=== PATIENT | male | born 2000 | race Hispanic/Latino ===

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

== ENCOUNTER 2022-02-12 11:09 | Emergency (ER) | payer OTHER ==
--- OUTSIDE RECORDS SUMMARY | 2022-02-12 11:12 | XMS REPORT | Continuity of Care Document ---
:2000 Author Organization [facility] t Address [address] [place] [address] Care Team Providers Name Role Phone PCP, PATIENT DOES NOT HAVE A Primary Care Physician Unavaila ble Doctor Unassigned, [place] Attending Clinician Unavailable TIM GRANDE Attending Clinician Unavailable Tim Grande MD Attending Clinician Srinath Talley Attending Clinician Yassine Hyman DO Attending Clinician Geneva Espino Attending Clinician Herminia Xavier Attending Clinician Raju_P Attending Clinician Unavailable Raju_P Admitting Clinician Unavailable Payers Payer Name Policy Type Policy Number Effective Date Expiration Date [facility] [id number] 2017 CHOICE MEDICAID 00:00:00 Problems Condition Condition Condition Status Onset Resolution Last Treating Co mments Source Name Details Category Date Date Treatment Clinician Date Otitis Otitis Disease Active Overview: Univer s media media 11-28 Formattin ity of 00:00: g of this [place] 00 note Medical might be Branch different from the original. BOME 06/01/06, LOM 06/15/06, DESTINI 06/15/06IC D10 Diagnosis Term Radio News An[employer] Utility Other and Other and Disease Active Overview: Univers unspecifie unspecifie 11-28 Formattin ity of d diseases d diseases [...] closed 0-25 ity of fracture fracture 00:00: [place] 00 Medical Branch Allergies, Adverse Reactions, Alerts [...] Quantity Comments Source Exposure to Not sure [facility] SARS-CoV-2 (event) Medica l Branch Tobacco use and 2017-07-30 2017-07-30 Never used [facility] exposure 00:00:00 00:00:00 Medical Branch Sex Assigned At [birth year] [facility] 00:00:00 00:00:00 Medical Branch Smoking Status Start Date Stop Date Source Never smoker [facility] Branch Medications Ordered Filled Start Stop Current Ordering Indication Dosage Frequency Signature Comments Components Source Medication Medication Date Date Medication? Clinician (SIG) Name Name naproxen Yes [id number] 550mg Take 1 U nivers sodium 9-16 tablet by ity of (ANAPROX 00:00: mouth 2 [place] DS) 550 mg 00 (two) Medical tablet times Branch daily with meals. naproxen Yes [id number] 550mg Take 1 U nivers sodium 9-16 tablet by ity of (ANAPROX 00:00: mouth 2 [place] DS) 550 mg 00 (two) Medical tablet times Branch daily with meals. Immunizations Ordered Filled Immunization Date Status Comments [facility] e Immunization Name Name DTAP 2006-06-01 Completed [facility] 00:00:00 [facility] MMR 2006-06-01 Completed University of 00:00:00 [facility] Polio (IPV/OPV) 2006-06-01 Completed Universit y of 00:00:00 [facility] Varicella 2006-06-01 Completed University of (varivax)(chicken 00:00:00 [place] M edical pox) Branch Proquad 2006-06-01 Completed University of (MMR/VARICELLA) 00:00:00 [facility] Branch DTAP 2006-06-01 Completed University of 00:00:00 [facility] MMR 2006-06-01 Completed University of 00:00:00 [facility] Polio (IPV/OPV) 2006-06-01 Completed Universit y of 00:00:00 [facility] Varicella 2006-06-01 Completed University of (varivax)(chicken 00:00:00 [place] M edical pox) Branch Proquad 2006-06-01 Completed University of (MMR/VARICELLA) 00:00:00 [facility] HEPATITIS A 2005-10-25 Completed University of 00:00:00 [facility] HEPATITIS A 2005-10-25 Completed University of 00:00:00 [facility] Pneumococcal 7 2005-01-21 Completed University of Conjugate, PCV7 00:00:00 [facility] (Prevnar7) [place] HEPATITIS A 2005-01-21 Completed University of 00:00:00 [facility] Pneumococcal 7 2005-01-21 Completed University of Conjugate, PCV7 00:00:00 [facility] (Prevnar7) [place] HEPATITIS A 2005-01-21 Completed University of 00:00:00 [facility] DTAP 2003-12-11 Completed University of 00:00:00 [facility] HIB 4 Dose Schedule 2003-12-11 Completed Unive rsity of 00:00:00 [facility] DTAP 2003-12-11 Completed University of 00:00:00 [facility] HIB 4 Dose Schedule 2003-12-11 Completed Unive rsity of 00:00:00 [facility] HIB 4 Dose Schedule 2003-03-28 Completed Unive rsity of 00:00:00 [facility] HIB 4 Dose Schedule 2003-03-28 Completed Unive rsity of 00:00:00 [facility] DTAP 2003-03-26 Completed University of 00:00:00 [facility] Pneumococcal 7 2003-03-26 Completed University of Conjugate, PCV7 00:00:00 [place] Med ical (Prevnar7) Branch Polio (IPV/OPV) 2003-03-26 Completed Universit y of 00:00:00 [facility] MMR 2003-03-26 Completed University of 00:00:00 [facility] Varicella 2003-03-26 Completed University of (varivax)(chicken 00:00:00 [facility] edical pox) Branch DTAP 2003-03-26 Completed University of 00:00:00 [facility] Pneumococcal 7 2003-03-26 Completed University of Conjugate, PCV7 00:00:00 [place] Med ical (Prevnar7) Branch Polio (IPV/OPV) 2003-03-26 Completed Universit y of 00:00:00 [facility] MMR 2003-03-26 Completed University of 00:00:00 [facility] Varicella 2003-03-26 Completed University of (varivax)(chicken 00:00:00 [facility] edical pox) Branch Hep B, Adol or Pedi 2003-01-17 Completed Unive rsity of Dosage 00:00:00 [facility] DTAP 2003-01-17 Completed University of 00:00:00 [facility] HIB 4 Dose Schedule 2003-01-17 Completed Unive rsity of 00:00:00 [facility] Pneumococcal 7 2003-01-17 Completed University of Conjugate, PCV7 00:00:00 [place] Med ical (Prevnar7) Branch Polio (IPV/OPV) 2003-01-17 Completed Universit y of 00:00:00 [facility] Hep B, Adol or Pedi 2003-01-17 Completed Unive rsity of Dosage 00:00:00 [facility] DTAP 2003-01-17 Completed University of 00:00:00 [facility] HIB 4 Dose Schedule 2003-01-17 Completed Unive rsity of 00:00:00 [facility] Pneumococcal 7 2003-01-17 Completed University of Conjugate, PCV7 00:00:00 [place] Med ical (Prevnar7) Branch Polio (IPV/OPV) 2003-01-17 Completed Universit y of 00:00:00 [facility] Hep B, Adol or Pedi 2002 Completed Unive rsity of Dosage 00:00:00 [facility] DTAP 2002 Completed University of 00:00:00 [facility] HIB 4 Dose Schedule 2002 Completed Unive rsity of 00:00:00 [facility] Polio (IPV/OPV) 2002 Completed Universit y of 00:00:00 [facility] Hep B, Adol or Pedi 2002 Completed Unive rsity of Dosage 00:00:00 [facility] DTAP 2002 Completed University of 00:00:00 [facility] HIB 4 Dose Schedule 2002 Completed Unive rsity of 00:00:00 [facility] Polio (IPV/OPV) 2002 Completed Universit y of 00:00:00 [facility] Hep B, Adol or Pedi 2002 Completed Unive rsity of Dosage 00:00:00 [facility] Hep B, Adol or Pedi 2002 Completed Unive rsity of Dosage 00:00:00 [facility] Vital Signs Vital Name Observation Time Observation Value Comments Source Body height 2021-01-20 19:29:00 167.6 cm [facility] Body weight 2021-01-20 19:29:00 68.04 kg [facility] BMI 2021-01-20 19:29:00 24.21 kg/m2 [facility] Body mass index 2021-01-20 19:29:00 70.72 % Unive rsity [facility] (BMI) [facility] [Percentile] Per age and sex Procedures Procedure Date / Time Performing Clinician Source Performed INSURANCE CORRESPONDENCE 2021-01-12 05:01:00 Doctor Dipti, [facility] [place] [facility] Encounters Start End Encounter Admission Attending Care Care Encounter Source Date/Time Date/Time Type Type Clinicians Facility Department ID 2021-02-01 Emergency [facility] [id number] Univers 23:11:10 ity of [facility] 2021-01-29 Emergency [facility] [id number] Univers 19:34:12 ity of [facility] 2021-01-29 Emergency [facility] [id number] Univers 00:55:57 ity of [facility] 2021-02-02 2021-02-02 Orders Doctor RIBEIRO [id number] Univers 00:00:00 00:00:00 Only UnassSHANE pyle [id number] ity of [place] [facility] [id number] Maksim as [id number] [facility] 009 [place] 2021-01-20 2021-01-20 [facility] [id number] Univers 14:30:00 14:49:25 TIM mueller [facility] 2021-01-20 2021-01-20 [facility] [id number] Univers 14:22:11 14:49:25 Visit Tim Bower [employer] [id number] [facility] [id number] Maksim as KEVIN?BLEA [phone] [address] MEDICAL OFFICE BUILDING 2021-01-13 2021-01-13 Hospital [facility] [id number] Univers 11:30:00 23:59:00 Encounter [place] [id number] ity of [place] [id number] [phone] [facility] 804 [place] 2021-01-13 2021-01-13 [facility] [id number] Univers 00:00:00 00:00:00 TIM madhu [facility] 2021-01-13 2021-01-13 Orders Doctor QUINTIN 1.2.840.114 [id number] Univers 00:00:00 00:00:00 Only Unassigned, SHANE [id number] ity of [place] [facility] [id number] Maksim as [id number] [address] 2021-01-12 2021-01-12 Orders Doctor QUINTIN 1.2.840.114 [id number] Univers 00:00:00 00:00:00 Only Unassigned, SHANE [id number] ity of [place] [facility] [id number] Maksim as [id number] [address] 2021-01-04 2021-01-04 [facility] [id number] Univers 00:00:00 00:00:00 Srinath S [facility] [id number] it y of [place] [id number] Maksim as Kevin?Blea [phone] Ny ria ferreira 198 [facility] Office [facility] 2020-12-30 2020-12-30 [facility] [id number] Univers 13:48:33 14:31:31 Visit Tim Bower [facility] [id number] it y of [place] [id number] Maksim as Kevin?Blea [phone] Ny ria [facility] 198 [facility] Office [facility] 2020-12-30 2020-12-30 Outpatient [facility] [id number] Univers 13:45:00 13:45:00 TIM mueller [facility] 2020-12-30 2020-12-30 Orders Doctor QUINTIN [id number] Univers 00:00:00 00:00:00 Only Unassigned, SHANE [id number] ity of [place] [facility] [id number] Maksim as [phone] [address] 2020-12-25 2020-12-25 Outpatient [facility] [id number] Univers 08:30:00 08:30:00 TIM mueller [facility] 2020-12-17 2020-12-17 Emergency [facility] [id number] Univers 14:55:00 16:09:00 Yassine Quintanilla [id number] i ty of [place] [id number] [place] [facility] [id number] [address] 2020-12-17 2020-12-17 Orders Doctor QUINTIN 1.2.840.114 [id number] Univers 00:00:00 00:00:00 Only UnassignedSHANE [id number] ity of [place] [facility] [id number] Maksim as [id number] [address] 2019-12-27 2019-12-28 Emergency [facility] [id number] Univers 22:51:00 00:12:00 Geneva Quintanilla [id number] i ty [place] [id number] [place] [id number] [address] 2019-12-27 2019-12-27 Orders Doctor RIBEIRO 1.2.840.114 [id number] Univers 00:00:00 00:00:00 Only Unassigned, SHANE [id number] ity of [place] [facility] [id number] Maksim as [id number] [address] 2019-09-15 2019-09-16 Emergency [facility] 1.2.840.114 [id number] Univers 22:22:08 00:40:00 Herminia Quiroz [place] [id number] ity of [place] [id number] [facility] [phone] [address] 2019-07-15 2019-07-15 Outpatient Raju_P [facility] [id number] [place] 04:40:00 04:40:00 0413 [facility] 2019-05-27 2019-05-27 Outpatient O [facility] [id number] Univers 16:00:16 23:59:00 [facility]-05-27 2019-05-27 Hospital [facility] [id number] Univers 16:00:00 23:59:00 Encounter Tim Bower [facility] [id number] ity of Surgical [id number] Maksim as Specialti [phone] Ny dical es 809 [facility] 2019-05-27 2019-05-27 Office [facility] [id number] Univers 15:32:16 16:09:16 Visit Tim L Health [id number] it y of Surgical [id number] Maksim as Specialti [phone] Ny dical es 198 [facility] 2019-05-27 2019-05-27 Outpatient R [facility] [id number] Univers 15:15:00 15:15:00 TIM mueller [facility] 2019-05-27 2019-05-27 Orders Doctor RIBEIRO 1.2.840.114 [id number] Univers 00:00:00 00:00:00 Only Unassigned, SHANE [id number] ity of [place] [facility] [id number] Maksim as [phone] [place] [address] Branch 2019-05-27 2019-05-27 Letter Harjinder, [facility] [id number] Univers 00:00:00 00:00:00 (Out) [facility] [id number] it y of Surgical [id number] Maksim as Specialti [phone] [place] dical es 198 Branch [place] Results This patient has no known results.
--- NOTE | 2022-02-12 12:39 | RAD REPORT ---
EXAM DESCRIPTION: RAD - Wrist Right 2 View - 02/12/2022 12:21 pm CLINICAL HISTORY: PAIN COMPARISON: No comparisons FINDINGS/IMPRESSION: No acute fracture. No malalignment. No significant focal degenerative changes.
--- NOTE | 2022-02-12 12:47 | ER ---
Nurse's Notes [facility] Name: Otf Rocha III Age: 21 yrs Sex: Male : 2000 Arrival Date: 02/12/2022 Time: 11:11 Bed 12 Private MD: Diagnosis: Pain in right wrist Presentation: 02/12 11:25 Chief complaint: Patient states: Working out doing biceps curls, reports right wrist jl7 pain since 1000 this morning. Coronavirus screen: At this time, the client does not indicate any symptoms associated with coronavirus-19. Ebola Screen: No symptoms or risks identified at this time. Initial Sepsis Screen: Does the patient meet any 2 criteria? No. Patient's initial sepsis screen is negative. Does the patient have a suspected source of infection? No. Patient's initial sepsis screen is negative. Risk Assessment: Do you want to hurt yourself or someone else? Patient reports no desire to harm self or others. Onset of symptoms was February 12, 2022 at 10:00. 11:25 Method Of Arrival: Ambulatory [facility] 11:25 Acuity: NYASIA 4 jl7 Triage Assessment: 11:26 General: Appears in no apparent distress. uncomfortable, Behavior is calm, cooperative, jl7 appropriate for age. Pain: Complains of pain in right wrist Pain radiates to dorsal aspect of right forearm Pain currently is 7 out of 10 on a pain scale. Musculoskeletal: Swelling absent. Injury Description: pain. Historical: - Allergies: 11:26 Amoxicillin; jl7 - Home Meds: 11:26 None [Active]; jl7 - PMHx: 11:26 None; jl7 - PSHx: 11:26 jaw repair- 6 years old; jl7 - Immunization history:: Client reports having NOT received the Covid vaccine. - Social history:: Smoking status: Patient denies any tobacco usage or history of. Screenin:39 Abuse screen: Denies threats or abuse. Nutritional screening: No deficits noted. mb9 Tuberculosis screening: No symptoms or risk factors identified. Fall Risk None identified. Assessment: 11:37 General: Appears in no apparent distress. comfortable, Behavior is calm, cooperative, mb9 appropriate for age. Pain: Complains of pain in right wrist Pain radiates to dorsal aspect of right forearm and right arm Pain currently is 7 out of 10 on a pain scale. Quality of pain is described as sharp, shooting, Pain began suddenly. Neuro: Level of Consciousness is awake, alert, obeys commands, Oriented to person, place, time, situation, Appropriate for age. Cardiovascular: Heart tones S1 S2 present Capillary refill < 3 seconds Rhythm is regular. Respiratory: Airway is patent Respiratory effort is even, unlabored, Respiratory pattern is regular, symmetrical. GI: Abdomen is flat. : No signs and/or symptoms were reported regarding the genitourinary system. EENT: No signs and/or symptoms were reported regarding the EENT system. Derm: Skin is pink, warm \T\ dry. Musculoskeletal: Capillary refill < 3 seconds, Range of motion: limited in right wrist no swelling noted to right wrist Tenderness present in right wrist. 12:49 Reassessment: No changes from previously documented assessment. mb9 Vital Signs: 11:25 BP 113 / 63; Pulse 80; Resp 17; Temp 97.7; Pulse Ox 99% ; Weight 72.57 kg; Height 5 ft. jl7 7 in. (170.18 cm); Pain 7/10; 12:49 BP 115 / 64; Pulse 74; Resp 16; Pulse Ox 100% on R/A; mb9 11:25 Body Mass Index 25.06 (72.57 kg, 170.18 cm) jl7 ED Course: 11:11 Patient arrived in ED. as 11:13 [place] Wong is PHCP. jl9 11:13 Kayce Jolley MD is Attending Physician. jl9 11:26 Triage completed. jl7 11:26 Arm band placed on right wrist. jl7 11:26 Bed in low position. Call light in reach. Side rails up X 1. mb9 11:30 Norma Su, BRITANY is Primary Nurse. mb9 11:39 No provider procedures requiring assistance completed. mb9 12:23 XRAY Wrist RIGHT 2 view In Process Unspecified. EDMS 12:50 Patient did not have IV access during this emergency room visit. mb9 Administered Medications: No medications were administered Medication: 11:39 VIS not applicable for this client. mb9 Outcome: 12:46 Discharge ordered by . jl9 12:54 Discharged to home ambulatory. mb9 12:54 Condition: stable 12:54 Discharge instructions given to patient, Instructed on discharge instructions, follow up and referral plans. Demonstrated understanding of instructions, follow-up care, medications, Prescriptions given X 1. 12:54 Patient left the ED. [email or web address] Signatures: Dispatcher [employer] Elenita Mclaughlin Jahala, RN RN jl7 Berlin Wong9 Norma Su RN RN mb9
--- NOTE | 2022-02-12 12:47 | EDPHYS ---
Physician Documentation [facility] Name: Otf Rocha III Age: 21 yrs Sex: Male : 2000 Arrival Date: 02/12/2022 Time: 11:11 Bed 12 Private MD: BEN Physician Kayce Jolley HPI: 02/12 12:42 This 21 yrs old Male presents to ER via Ambulatory with complaints of wrist jl9 pain s/p lifting weight. Denies any trauma. . 12:42 The patient or guardian reports pain. The complaints affect the left wrist diffusely. jl9 Context: The problem was sustained at home. Onset: The symptoms/episode began/occurred today. Modifying factors: The symptoms are alleviated by holding still, the symptoms are aggravated by movement. Historical: - Allergies: 11:26 Amoxicillin; jl7 - Home Meds: 11:26 None [Active]; jl7 - PMHx: 11:26 None; jl7 - PSHx: 11:26 jaw repair- 6 years old; jl7 - Immunization history:: Client reports having NOT received the Covid vaccine. - Social history:: Smoking status: Patient denies any tobacco usage or history of. ROS: 12:43 Constitutional: Negative for fever, chills, and weight loss, Eyes: Negative for injury, jl9 pain, redness, and discharge, ENT: Negative for injury, pain, and discharge, Neck: Negative for injury, pain, and swelling, Cardiovascular: Negative for chest pain, palpitations, and edema, Respiratory: Negative for shortness of breath, cough, wheezing, and pleuritic chest pain, Abdomen/GI: Negative for abdominal pain, nausea, vomiting, diarrhea, and constipation, Back: Negative for injury and pain, : Negative for injury, bleeding, discharge, and swelling. 12:44 Skin: Negative for injury, rash, and discoloration, Neuro: Negative for headache, jl9 weakness, numbness, tingling, and seizure, Psych: Negative for depression, anxiety, suicide ideation, homicidal ideation, and hallucinations, Allergy/Immunology: Negative for hives, rash, and allergies, Endocrine: Negative for neck swelling, polydipsia, polyuria, polyphagia, and marked weight changes, Hematologic/Lymphatic: Negative for swollen nodes, abnormal bleeding, and unusual bruising. 12:44 MS/extremity: Positive for pain, R wrist pain. Exam: 12:44 Hand exam: Exam is positive for pain, ROM: limited active range of motion due to pain, jl9 Circulation is intact in all extremities. sensation intact. 12:44 Constitutional: This is a well developed, well nourished patient who is awake, alert, and in no acute distress. Head/Face: Normocephalic, atraumatic. Eyes: Pupils equal round and reactive to light, extra-ocular motions intact. Lids and lashes normal. Conjunctiva and sclera are non-icteric and not injected. Cornea within normal limits. Periorbital areas with no swelling, redness, or edema. ENT: Mucous membranes moist. Neck: Trachea midline, no thyromegaly or masses palpated, and no cervical lymphadenopathy. Supple, full range of motion without nuchal rigidity, or vertebral point tenderness. No Meningismus. Chest/axilla: Normal chest wall appearance and motion. Nontender with no deformity. No lesions are appreciated. Cardiovascular: Regular rate and rhythm with a normal S1 and S2. No gallops, murmurs, or rubs. Normal PMI, no JVD. No pulse deficits. Respiratory: Lungs have equal breath sounds bilaterally, clear to auscultation and percussion. No rales, rhonchi or wheezes noted. No increased work of breathing, no retractions or nasal flaring. Abdomen/GI: Soft, non-tender, with normal bowel sounds. No distension or tympany. No guarding or rebound. No evidence of tenderness throughout. Back: No spinal tenderness. No costovertebral tenderness. Full range of motion. Skin: Warm, dry with normal turgor. Normal color with no rashes, no lesions, and no evidence of cellulitis. Neuro: Awake and alert, GCS 15, oriented to person, place, time, and situation. Cranial nerves II-XII grossly intact. Motor strength 5/5 in all extremities. Sensory grossly intact. Cerebellar exam normal. Normal gait. Psych: Awake, alert, with orientation to person, place and time. Behavior, mood, and affect are within normal limits. Vital Signs: 11:25 BP 113 / 63; Pulse 80; Resp 17; Temp 97.7; Pulse Ox 99% ; Weight 72.57 kg; Height 5 ft. jl7 7 in. (170.18 cm); Pain 7/10; 12:49 BP 115 / 64; Pulse 74; Resp 16; Pulse Ox 100% on R/A; mb9 11:25 Body Mass Index 25.06 (72.57 kg, 170.18 cm) jl7 MDM: 11:30 Patient medically screened. jl9 12:45 Differential diagnosis: closed fracture, contusion, abrasion. Data reviewed: vital jl9 signs, nurses notes. Counseling: I had a detailed discussion with the patient and/or guardian regarding: the historical points, exam findings, and any diagnostic results supporting the discharge/admit diagnosis, radiology results, the need for outpatient follow up. 02/12 11:26 Order name: XRAY Wrist RIGHT 2 view; Complete Time: 12:42 jl9 Administered Medications: No medications were administered Disposition: 12:45 Chart complete. jl9 15:34 STAFF ATTESTATION STATEMENT: I was immediately available onsite in the emergency sd2 department for consultation in the care of this patient. I did not see or examine this patient. Kayce Jolley MD. Disposition Summary: 02/12/22 12:46 Discharge Ordered Location: Home jl9 Condition: Stable jl9 Diagnosis - Pain in right wrist jl9 Followup: jl9 - With: Private Physician - When: 1 - 2 days - Reason: Recheck today's complaints, Continuance of care, Re-evaluation by your physician Discharge Instructions: - Discharge Summary Sheet jl9 - Wrist Pain, Adult, [id number] jl9 Forms: - Medication Reconciliation Form jl9 - Thank You Letter jl9 - Antibiotic Education jl9 - Prescription Opioid Use jl9 Prescriptions: - Ibuprofen 600 mg Oral Tablet - take 1 tablet by ORAL route every 6 hours As needed take with food; 30 tablet; jl9 Refills: 0, Product Selection Permitted Signatures: Dispatcher [employer] Chai Desir RN RN jl7 Linares, John jl9 Dunlop, Stephanie, MD MD sd2
== END 2022-02-12 12:54 | disposition home or self-care (01) ==
LOC: ER 11:09
DX: M25.531 Pain in right wrist (principal); Z88.1 Allergy status to other antibiotic agents
CPT/HCPCS: 99283

== ENCOUNTER 2023-02-17 19:26 | Emergency (ER) | payer OTHER ==
--- OUTSIDE RECORDS SUMMARY | 2023-02-17 19:29 | XMS REPORT | Continuity of Care Document ---
:2000 Author Organization [facility] t Address [address] [place] [address] [place] [id number] Care Team Providers Name Role Phone PCP, PATIENT DOES NOT HAVE A Primary Care Physician Unavaila ble Doctor Unassigned, [place] Attending Clinician Unavailable TIM ZHANG Attending Clinician Unavailable Tim Zhang MD Attending Clinician Srinath Talley Attending Clinician Yassine Hyman DO Attending Clinician Geneva Espino Attending Clinician Herminia Xavier Attending Clinician Raju_P Attending Clinician Unavailable Raju_P Admitting Clinician Unavailable Payers Payer Name Policy Type Policy Number Effective Date Expiration Date [facility] [id number] 2017 CHOICE MEDICAID 00:00:00 Problems Condition Condition Condition Status Onset Resolution Last Treating Co mments Source Name Details Category Date Date Treatment Clinician Date Otitis Otitis Disease Active Overview: Univer s media media 11-28 Formattin ity of 00:00: g of this [place] 00 note Medical might be Branch different from the original. 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 Clinician (SIG) Name Name naproxen Yes [id number] 550mg Take 1 U nivers sodium 9-16 tablet by ity of (ANAPROX 00:00: mouth 2 [place] DS) 550 mg 00 (two) Medical tablet times Branch daily with meals. naproxen Yes [id number] 550mg Take 1 U nivers sodium 9-16 tablet by ity of (ANAPROX 00:00: mouth 2 [place] DS) 550 mg 00 (two) Medical tablet times Branch daily with meals. Vital Signs Vital Name Observation Time Observation Value Comments Source Body height 2021-01-20 19:29:00 167.6 cm [facility] Medical Branch Body weight 2021-01-20 19:29:00 68.04 kg [facility] BMI 2021-01-20 19:29:00 24.21 kg/m2 [facility] Body mass index 2021-01-20 19:29:00 70.72 % [facility] (BMI) [facility] [Percentile] Per age and sex Procedures Procedure Date / Time Performing Clinician Source Performed INSURANCE CORRESPONDENCE 2021-01-12 05:01:00 Doctor Dipti, [facility] [place] [facility] Encounters Start End Encounter Admission Attending Care Care Encounter Source Date/Time Date/Time Type Type Clinicians Facility Department ID 2021-02-01 Emergency [facility] [id number] Univers 23:11:[address] [facility] 2021-01-29 Emergency [facility] [id number] Univers 19:34:[address] [facility] 2021-01-29 Emergency [facility] [id number] Univers 00:55:57 ity [facility] 2021-02-02 2021-02-02 Orders Doctor QUINTIN [id number] Univers 00:00:00 00:00:00 Only Unassigned, SHANE [id number] ity of [place] [facility] [id number] Maksim as [id number] [address] 2021-01-20 2021-01-20 [facility] [id number] Univers 14:30:00 14:49:25 TIM mueller [facility] 2021-01-20 2021-01-20 Office [facility] [id number] Univers 14:22:11 14:49:25 Visit Tim Bower [facility] [id number] it y of [place] [id number] Maksim as KEVIN?BLEA [phone] [address] MEDICAL OFFICE BUILDING 2021-01-13 2021-01-13 Hospital [facility] [id number] Univers 11:30:00 23:59:00 Encounter Tim Quintanilla [id number] ity of [place] [id number] [facility] [phone] [facility] [address] [place] 2021-01-13 2021-01-13 Outpatient [facility] [id number] Univers 00:00:00 00:00:00 TIM mueller [facility] 2021-01-13 2021-01-13 Orders Doctor QUINTIN [id number] [id number] Univers 00:00:00 00:00:00 Only Unassigned, SHANE [id number] ity of [place] [facility] [id number] Maksim as [id number] [address] 2021-01-12 2021-01-12 Orders Doctor QUINTIN 1.2.840.114 [id number] Univers 00:00:00 00:00:00 Only Unassigned, SHANE [id number] ity of [place] [facility] [id number] Maksim as [phone] [address] 2021-01-04 2021-01-04 Telephone [facility] [id number] Univers 00:00:00 00:00:00 [facility] [id number] it y of [place] [id number] Maksim as Kevin?Blea [id number] [address] Medical Office Building 2020-12-30 2020-12-30 Office [facility] [id number] Univers 13:48:33 14:31:31 Visit Tim Health [id number] it y of [place] [id number] Maksim as Kevin?Blea [phone] [address] Medical Office Building 2020-12-30 2020-12-30 Outpatient [facility] [id number] Univers 13:45:00 13:45:00 TIM mueller [facility] 2020-12-30 2020-12-30 Orders Doctor QUINTIN 1.2.840.114 [id number] Univers 00:00:00 00:00:00 Only Unassigned, SHANE [id number] ity of [place] [facility] [id number] Maksim as [phone] [address] 2020-12-25 2020-12-25 Outpatient Belen ZHANG, [facility] [id number] Univers 08:30:00 08:30:[address] [facility] 2020-12-17 2020-12-17 Emergency Hyman, [facility] [id number] Univers 14:55:00 16:09:00 Yassine Quintanilla [id number] i ty of [place] [id number] [facility] [phone] [address] 2020-12-17 2020-12-17 Orders Doctor QUINTIN 1.2.840.114 [id number] Univers 00:00:00 00:00:00 Only Unassigned, SHANE [id number] ity of [place] [facility] [id number] Maksim as [id number] [address] 2019-12-27 2019-12-28 Emergency Gallagher, [facility] [id number] Univers 22:51:00 00:12:00 Geneva Quintanilla [id number] i ty of [place] [id number] [facility] [id number] [address] 2019-12-27 2019-12-27 Orders Doctor QUINTIN 1.2.840.114 [id number] Univers 00:00:00 00:00:00 Only Unassigned, SHANE [id number] ity of [place] [facility] [id number] Maksim as [phone] [address] 2019-09-15 2019-09-16 Emergency Chaoman, [facility] 1.2.840.114 [id number] Univers 22:22:08 00:40:00 Herminia Quintanilla [id number] ity of [place] [id number] [facility] [id number] [address] 2019-07-15 2019-07-15 Outpatient Raju_P [facility] G [id number] [place] 04:40:00 04:40:00 [facility] 2019-05-27 2019-05-27 Outpatient [facility] [id number] Univers 16:00:16 23:59:00 [place] ervin [facility] 2019-05-27 2019-05-27 Hospital [facility] [id number] Univers 16:00:00 23:59:00 Encounter Tim Unger [id number] ity of Surgical [id number] Maksim as Specialti [phone] De dical es 809 [facility] 2019-05-27 2019-05-27 Office [facility] [id number] Univers 15:32:16 16:09:16 Visit Tim Unger [id number] it y of Surgical [id number] Maksim as Specialti [phone] De dical es 198 [facility] 2019-05-27 2019-05-27 Outpatient [facility] [id number] Univers 15:15:00 15:15:00 [facility] 2019-05-27 2019-05-27 Orders Doctor QUINTIN 1.2.840.114 [id number] Univers 00:00:00 00:00:00 Only Unassigned, SHANE [id number] ity of [place] [facility] [id number] Maksim as [id number] [address] 2019-05-27 2019-05-27 Letter [facility] [id number] Univers 00:00:00 00:00:00 (Out) Tim Bower [employer] [id number] it y of Surgical [id number] Maksim as Specialti [phone] De dical es 198 [facility] Results This patient has no known results.
[2023-02-17] MEDS ORDERED: ACETAMINOPHEN 325 MG TABLET ONE ×2 (19:59→20:01)
[2023-02-17] MEDS ORDERED: IBUPROFEN 400 MG TAB ONE (19:59)
--- NOTE | 2023-02-17 20:14 | RAD REPORT ---
EXAM DESCRIPTION: RAD - Knee Right 3 View - 02/17/2023 8:08 pm CLINICAL HISTORY: PAIN COMPARISON: No comparisons FINDINGS: No fracture or dislocation seen. No significant joint effusion evident.
--- NOTE | 2023-02-17 20:58 | EDPHYS ---
Physician Documentation [facility] Name: Otf Rocha III Age: 22 yrs Sex: Male : 2000 Arrival Date: 02/17/2023 Time: 19:26 Bed 11 Private MD: ED Physician Alok Mendosa HPI: 02/17 19:45 This 22 yrs old Male presents to ER via Ambulatory with complaints of Knee cp Injury. 19:45 The patient presents with an injury, pain, that is acute. The complaints affect the cp right knee. Context: resulted from the patient falling, playing sports, basketball, the patient can fully bear weight, the patient is able to ambulate, Problem is a result from a previous injury: No. 19:45 Onset: The symptoms/episode began/occurred 1 week(s) ago. cp Historical: - Allergies: 19:37 Amoxicillin; nj1 - PMHx: 19:37 None; nj1 - PSHx: 19:37 jaw repair- 6 years old; nj1 - Immunization history:: Client reports having NOT received the Covid vaccine. - Social history:: Smoking status: Patient denies any tobacco usage or history of. ROS: 19:50 MS/extremity: Positive for pain, of the right knee, Negative for decreased range of cp motion, deformity, 19:50 Constitutional: Negative for body aches, chills, fever, cp 19:50 Neck: Negative for pain with movement, pain at rest, 19:50 Back: Negative for pain at rest, pain with movement, 19:50 All other systems are negative, Exam: 19:55 Constitutional: The patient appears in no acute distress, alert, awake, non-toxic, well cp developed, well nourished, 19:55 Head/Face: Normocephalic, atraumatic. cp 19:55 Neck: ROM/movement: is normal, is supple, without pain, no range of motions limitations, 19:55 Chest/axilla: Inspection: normal, 19:55 Cardiovascular: Rate: normal, 19:55 Respiratory: the patient does not display signs of respiratory distress, Respirations: normal, no use of accessory muscles, no retractions, labored breathing, is not present, 19:55 Abdomen/GI: Inspection: abdomen appears normal, 19:55 Musculoskeletal/extremity: Extremities: grossly normal except: noted in the right knee: pain, tenderness along medial and lateral joint line, There is no evidence of decreased ROM, deformity, ROM: limited passive range of motion due to pain, in the right knee, Pulses: noted to be 2+ in the right dorsalis pedis artery, the right leg Sensation intact. overlying skin of knee warm, dry and intact. Vital Signs: 19:31 BP 122 / 71; Pulse 58; Resp 16; Temp 98.1(O); Pulse Ox 97% on R/A; Weight 68.04 kg; nj1 Height 5 ft. 7 in. ; Pain 9/10; 20:21 BP 118 / 73; Pulse 71; Resp 17 S; Pulse Ox 98% on R/A; ha1 21:15 BP 121 / 70; Pulse 75; Resp 17 S; Pulse Ox 99% on R/A; ha1 19:31 Body Mass Index 23.49 (68.04 kg, 170.18 cm) [facility] 19:31 Pain Scale: Adult [facility] MDM: 19:31 Patient medically screened. [facility] 19:50 Differential diagnosis: dislocation, closed fracture, contusion, ligament injury, cp meniscus injury. 20:55 Data reviewed: vital signs, nurses notes, radiologic studies, plain films. 20:55 I considered the following discharge prescriptions or medication management in the emergency department Medications were administered in the Emergency Department. See MAR. Counseling: I had a detailed discussion with the patient and/or guardian regarding the historical points, exam findings, and any diagnostic results supporting the discharge/admit diagnosis, radiology results, the need for outpatient follow up, a orthopedic surgeon, to return to the emergency department if symptoms worsen or persist or if there are any questions or concerns that arise at home. Response to treatment: the patient's symptoms have mildly improved after treatment, and as a result, I will discharge patient. 02/17 19:41 Order name: XRAY Knee RIGHT 3 view; Complete Time: 20:37 02/17 20:38 Interpretation: Report reviewed. 02/17 20:55 Order name: Sourav wrap-joint; Complete Time: 21:02 02/17 21:01 Order name: Crutches; Complete Time: 21:13 cp Administered Medications: 19:52 Drug: Ibuprofen PO 800 mg PO once Route: PO; ha1 21:17 Follow up: Response: No adverse reaction; Pain is decreased ha1 19:52 Drug: Acetaminophen PO 650 mg PO once Route: PO; ha1 21:17 Follow up: Response: No adverse reaction; Pain is decreased ha1 Disposition Summary: 02/17/23 20:57 Discharge Ordered Notes: Location: Home cp Problem: new cp Symptoms: have improved cp Condition: Stable cp Diagnosis - Pain in right knee cp Followup: cp - With: Ralph Cheng MD - When: 1 week - Reason: Recheck today's complaints Discharge Instructions: - Discharge Summary Sheet cp - Elastic Bandage and RICE Therapy cp - How to Use a Knee Brace cp - Acute Knee Pain, Adult cp Forms: - Medication Reconciliation Form cp - Thank You Letter cp - Antibiotic Education cp - Prescription Opioid Use cp - Patient Portal Instructions cp - Leadership Thank You Letter cp Prescriptions: - Ibuprofen 800 mg Oral Tablet - take 1 tablet ORAL route every 8 hours As needed take with food; 30 tablet; cp Refills: 0, Product Selection Permitted Signatures: Dispatcher [employer] Alok Dias MD MD cha Page, Corey, PA PA cp Melissa Bronson, RN RN ha1 Arabella Perry RN RN nj1
--- NOTE | 2023-02-17 20:58 | ER ---
Nurse's Notes [facility] Name: Otf Rocha III Age: 22 yrs Sex: Male : 2000 Arrival Date: 02/17/2023 Time: 19:26 Bed 11 Private MD: Diagnosis: Pain in right knee Presentation: 02/17 19:31 Chief complaint: Patient states: Right knee pain, tackled while playing basketball a nj1 week ago. Ibuprofen taken last about 8 hours ago with no significant relief. Able to ambulate with pain. 19:31 Coronavirus screen: Vaccine status: Patient reports being unvaccinated. Ebola Screen: [facility] Patient denies travel to an Ebola-affected area in the 21 days before illness onset. Initial Sepsis Screen: Does the patient meet any 2 criteria? No. Patient's initial sepsis screen is negative. Does the patient have a suspected source of infection? No. Patient's initial sepsis screen is negative. Risk Assessment: Do you want to hurt yourself or someone else? Patient reports no desire to harm self or others. 19:31 Method Of Arrival: Ambulatory [facility] 19:31 Acuity: [place] 4 [facility] 19:40 Onset of symptoms was February 17, 2023. ha1 Historical: - Allergies: 19:37 Amoxicillin; nj1 - PMHx: 19:37 None; [facility] - PSHx: 19:37 jaw repair- 6 years old; nj1 - Immunization history:: Client reports having NOT received the Covid vaccine. - Social history:: Smoking status: Patient denies any tobacco usage or history of. Screenin:40 Abuse screen: Denies threats or abuse. Denies injuries from another. Nutritional ha1 screening: No deficits noted. Tuberculosis screening: No symptoms or risk factors identified. Assessment: 19:38 General: Appears uncomfortable, Behavior is calm, cooperative. Pain: Complains of pain ha1 in lateral aspect of right knee Pain does not radiate. Pain currently is 7 out of 10 on a pain scale. Quality of pain is described as throbbing. Neuro: Level of Consciousness is awake, alert, obeys commands, Oriented to person, place, time, situation. Cardiovascular: Capillary refill < 3 seconds Patient's skin is warm and dry. Respiratory: Airway is patent Respiratory effort is even, unlabored, Respiratory pattern is regular, symmetrical. Musculoskeletal: Circulation, motion, and sensation intact. Reports pain in lateral aspect of right knee. 20:30 Reassessment: Patient and/or family updated on plan of care and expected duration. Pain ha1 level reassessed. Patient is alert, oriented x 3, equal unlabored respirations, skin warm/dry/pink. 21:15 Reassessment: Patient and/or family updated on plan of care and expected duration. Pain ha1 level reassessed. Patient is alert, oriented x 3, equal unlabored respirations, skin warm/dry/pink. Patient states feeling better. Patient states symptoms have improved. Vital Signs: 19:31 BP 122 / 71; Pulse 58; Resp 16; Temp 98.1(O); Pulse Ox 97% on R/A; Weight 68.04 kg; nj1 Height 5 ft. 7 in. ; Pain 9/10; 20:21 BP 118 / 73; Pulse 71; Resp 17 S; Pulse Ox 98% on R/A; ha1 21:15 BP 121 / 70; Pulse 75; Resp 17 S; Pulse Ox 99% on R/A; ha1 19:31 Body Mass Index 23.49 (68.04 kg, 170.18 cm) nj1 19:31 Pain Scale: Adult [facility] ED Course: 19:28 Patient arrived in ED. jj6 19:29 Alok Mcduffie PA is PHCP. cp 19:29 Alok Mendosa MD is Attending Physician. cp 19:31 Patient has correct armband on for positive identification. Bed in low position. Call ha1 light in reach. Side rails up X 1. Adult w/ patient. 19:37 Triage completed. nj1 19:38 Melissa Bronson, RN is Primary Nurse. ha1 19:38 Arm band placed on. nj1 20:10 XRAY Knee RIGHT 3 view In Process Unspecified. EDMS 20:57 Ralph Cheng MD is Referral Physician. cp 21:15 No provider procedures requiring assistance completed. Patient did not have IV access ha1 during this emergency room visit. 21:16 Provided Education on: how to use crotches . ha1 Administered Medications: 19:52 Drug: Ibuprofen PO 800 mg PO once Route: PO; ha1 21:17 Follow up: Response: No adverse reaction; Pain is decreased ha1 19:52 Drug: Acetaminophen PO 650 mg PO once Route: PO; ha1 21:17 Follow up: Response: No adverse reaction; Pain is decreased ha1 Medication: 19:40 VIS not applicable for this client. ha1 Outcome: 20:57 Discharge ordered by . cp 21:15 Discharged to home ambulatory, with crutches, ha1 21:15 Condition: stable 21:15 Discharge instructions given to patient, Instructed on discharge instructions, follow up and referral plans. medication usage, Demonstrated understanding of instructions, follow-up care, medications, Prescriptions given X 1, 21:17 Patient left the ED. ha1 Signatures: Dispatcher [employer] EDMS Alok Mcduffie PA PA cp Jeffries, Jennifer jj6 Melissa Bronson RN RN ha1 Arabella Perry RN RN nj1
[2023-02-17 21:23] VITALS: TEMP 98.1
[2023-02-17 21:25] VITALS: BP 121/70; O2SAT 99
== END 2023-02-17 21:17 | disposition home or self-care (01) ==
LOC: ER 19:26
DX: M25.561 Pain in right knee (principal); Z88.1 Allergy status to other antibiotic agents
CPT/HCPCS: 99283